=== PATIENT | female | born 1985 | race Caucasian/White ===

== ENCOUNTER → 2024-01-19 13:29 | Outpatient (REF) | payer OTHER, SELFPAY | LOC: WDC 13:29 | PROVIDERS: ATTENDING PHYSICIAN Obstetrics & Gynecology; FAMILY PHYSICIAN Internal Medicine | DX: Z12.31 Encounter for screening mammogram for malignant neoplasm of breast (principal) | CPT/HCPCS: 77063; 77067 ==

== ENCOUNTER 2025-06-16 10:34 | Emergency (ER) | payer BC, SELFPAY ==
[2025-06-16 10:47] VITALS: BP 115/72
[2025-06-16 11:44] LABS: COVID-19 Antigen Negative (Negative)
[2025-06-16 12:00] VITALS: BP 119/70
[2025-06-16] MEDS: TORADOL 15 MG IM (12:01)
[2025-06-16 12:02] VITALS: BMI 19.0
[2025-06-16 14:00] VITALS: BP 114/72
[2025-06-16] MEDS: AMOXIL 1000 MG PO (14:29)
[2025-06-16] MEDS: ZITHROMAX 500 MG PO (14:30)
--- NOTE | 2025-06-16 16:57 | ED.GENMED ---
History of Present Illness
General
Chief Complaint: Cold/Flu/URI Symptoms
Source: patient
Exam Limitations: none
Time Seen by Provider: 06/16/25 11:42
Nursing documentation reviewed up to this point in time: agreed with
History of Present Illness
History of Present Illness:
40-year-old female presenting with persistent viral symptoms. She states that she developed viral URI symptoms a few weeks ago including sore throat, congestion, cough. These persisted, including a persistent cough and sinus pressure.
Last week, she was seen by her primary care provider and started on a course of antibiotics for suspected sinusitis. She requested to be placed on ciprofloxacin as that has worked for her in the past.
Patient states she was feeling better by the end of the week however today woke up and said that she can �feel her lungs�. She doesn�t describe it as chest pain necessarily, rather a mild discomfort with breathing. She contacted her primary care
provider who recommended evaluation in the emergency department.
She otherwise feels much better and denies any fever, new productive cough, shortness of breath. No pain or swelling in lower extremities.
She denies any recent travel or surgeries. No exogenous hormone use.
Patient believes that her initial viral URI may have been RSV as her nephew who was visiting from [facility] was sick at the time.
Review of Systems
Review of Systems
Allergies reviewed?: Yes
All Other Systems: ROS reviewed and negative except as documented in HPI and ROS
Phy Exam
Physical Exam
Physical Exam:
Vitals: Patient's vital signs are stable. afebrile
General: Patient is very well appearing, no acute distress
Skin: Warm and dry, no rashes or lesions
Head: Normocephalic, atraumatic
Eyes: Sclera nonicteric.
Throat: Protecting airway
Neck: Normal ROM
Cardiac: Regular rate and rhythm, no murmurs.
Pulm: Normal respiratory effort. Lungs clear bilaterally.
Abdomen: No abdominal tenderness.
Extremities: No evidence of cyanosis or edema
Neuro: AAOx3. Grossly intact
Psychiatric: Normal affect.
Course
Orders/Labs/Results
Orders:
Orders
06/16/25 10:51
COVID-19 Antigen Urgent
Source: Nasal Swab
Influenza A+B Rapid Molecular Urgent
GAMAL Source: Nasal Swab
Specimen Description:
06/16/25 11:51
Ketorolac [Toradol] 15 mg IM NOW STA
CR Chest - 2 Views Urgent
Comment:
Reason For Exam: cough, recent virus
06/16/25 14:14
Amoxicillin [Amoxil] 1,000 mg PO NOW STA
Azithromycin [Zithromax] 500 mg PO NOW STA
Vital Signs
Initial and Last Documented VS:
Initial Vital Signs
Temp Pulse Resp BP Pulse Ox
98.8 F 81 18 115/72 97
06/16/25 10:47 06/16/25 10:47 06/16/25 10:47 06/16/25 10:47 06/16/25 10:47
Last Documented Vital Signs
Temp Pulse Resp BP Pulse Ox
98.8 F 72 18 114/72 99
06/16/25 10:47 06/16/25 14:00 06/16/25 14:00 06/16/25 14:00 06/16/25 16:57
MDM/Problems Addressed
Differential Diagnosis Includes:
Not limited to: bronchitis, pneumonia, pleurisy, costochondritis, etc
MDM/Problems Addressed:
40-year-old female with recent viral URI now on course at [facility] for suspected sinusitis presenting with mild chest discomfort today. She first noticed this morning., No associated fevers, new productive cough, shortness of breath. No PE risk factors.
Patient is very well appearing with normal vital signs. On exam, she is in no distress and nontoxic appearing. Cardio/pulmonary assessment unremarkable. Clear lungs bilaterally. No clinical evidence of DVT on exam.
Viral studies were sent prior to my evaluation, which were negative for COVID and influenza. Patient is not hypoxic or complaint of any shortness of breath. She has no PE risk factors and a PERC of zero. Do not suspect pulmonary embolism. No
exertional component or an anginal equivalent.
Possible concentrates, pleurisy, or pneumonia. Will obtain chest x-ray, give Toradol and reassess.
Chest x-ray reveals very faint opacity in right middle lung concerning for pneumonia. Discussed with patient at length. She did have some improvement in symptoms following Toradol.
As she is afebrile, not hypoxic or tachypneic� feel appropriate for management outpatient on oral abx. Advised to discontinue ciprofloxacin. Prescriptions sent for amoxicillin and azithromycin.
Discussed strict return precautions and advised follow-up with PCP in one week. Patient expressed understanding and is comfortable with plan.
Chronic conditions affecting care:
N/A
Acute Exacerbation and/or Progression of Chronic Illness:
N/A
*Radiology
Radiology exam reviewed: radiology read reviewed
*Pulse Oximetry
SaO2: 99
Oxygen Mode of Delivery: Room air
Patient hypoxic: no
*EKG
Interpreted by ED Provider?: NA
*[employer] Interpretation
Rate: [employer]ator- N/A
*Critical Care Note
Total Time (30-74mins, 75-104mins- exclusive of procedures): Not Applicable
ED Attending Note
-
Portions of this chart may have been created with voice recognition software.� Occasional wrong word or��sound alike� substitutions may have occurred due to the inherent limitations of voice recognition software.
Discharge Plan
Departure
Patient Disposition: Home (Routine Discharge)
Date of Disposition: 06/16/25
Time of Disposition: 14:14
Patient with high blood pressure during this ER visit?: No
Condition: Good
Covid-19: Negative COVID-19
Discharge Problem:
Pneumonia
Instructions: Pneumonia in adults (DC)
Prescriptions:
New
amoxicillin 500 mg capsule
1,000 mg PO TID 5 Days Qty: 30 0RF
azithromycin 250 mg tablet
250 mg PO DAILY 4 Days Qty: 4 0RF
No Action
desvenlafaxine succinate [Pristiq] 25 MG tablet extended release 24 hr
25 mg PO DAILY
Referrals:
Kevin Fernando MD [Family Provider, Internal Medicine] - Follow up in 5-7 days
Activity Restrictions/Additional Instructions:
RETURN TO THE EMERGENCY DEPARTMENT WITH ANY FEVER, CHILLS, CHEST PAIN OR SHORTNESS OF BREATH/DIFFICULTY BREATHING, COUGHING UP BLOOD, WORSENING IN CURRENT SYMPTOMS, OR ANY OTHER CONCERNS
- As discussed, your x-ray showed a faint pneumonia in your right lower lung. 2 antibiotics have been sent to your pharmacy. Please take these as directed. You should discontinue the ciprofloxacin.
- You can take Tylenol and/or Motrin as needed for discomfort. It is important to stay well-hydrated.
- Follow-up with your primary care provider in 1 week for further evaluation/management and to ensure that your symptoms are improving
Monitor your symptoms closely and return to the emergency department with any acute worsening/ new symptoms or any other concerns
Interventions
Interventions:
*Risk Screen - Suicide Last Done: 06/16/25 10:47
*General Assessment Last Done: 06/16/25 12:02
*Neglect/Abuse Screening Last Done: 06/16/25 10:47
*ED- Fall Risk Assessment Last Done: 06/16/25 12:02
*ED COVID-19 Vaccine History Last Done: 06/16/25 12:02
*ED Influenza Vaccine History Last Done: 06/16/25 12:02
*Nursing Disposition Last Done: 06/16/25 14:32
ED- Pulmonary Assessment Last Done: 06/16/25 13:57
Discharge Date and Time
Discharge Date/Time: 06/16/25 14:35
Print Language: UKRAINIAN
== END 2025-06-16 14:35 | disposition home or self-care (01) ==
LOC: EMR 10:34
PROVIDERS: Student in an Organized Health Care Education/Training Program; EMERGENCY PHYSICIAN Emergency Medicine; FAMILY PHYSICIAN Internal Medicine
DX: J18.9 Pneumonia, unspecified organism (principal)
CPT/HCPCS: 99284; 96372; 71046; 87502; 87811